=== PATIENT | female | born 1990 | race Caucasian/White ===

== ENCOUNTER 2016-07-10 00:20 | Observation (INO) | payer OTHER ==
[~2016-07-10] VITALS: Ht 180.3 cm; Wt 72.6 kg
--- NOTE | 2016-07-10 00:22 | ED.REPORT ---
HPI-General Illness Date of Service Jul 10, 2016 ED Provider: Dr. Matt Fallon M.D. A 26 year old female with a history of IDDM, accidental insulin overdose, and DKA presents to the ED via EMS with hyperglycemia onset just prior to arrival. The patient admits to fighting with her boyfriend, drinking too much, and forgetting to eat or take her insulin. The patient reports associated symptoms of nausea, hyperventilation, and anxiety, which have resolved in the ED. She denies other symptoms. EMS found the patient hyperglycemic with a BP of 131/90, a pulse of 120, and a pulse ox of 99% on room air. The patient normally takes Humalog and Lantus to control her blood glucose levels. Nursing Notes Stated Complaint: ETOH/ELEVATED BLOOD SUGAR Nursing Notes Reviewed: Yes Allergies: Coded Allergies: amoxicillin (Verified Allergy, Unknown, 07/10/16) Scheduled Insulin Glargine (Lantus U100 Insulin Vial) 100 Unit/Ml Vial 40 UNIT SUBQ QAM Scheduled PRN Insulin Human Lispro (HumaLOG U100 Insulin Vial) 100 Unit/Ml Unit UNIT SUBQ per sliding scale PRN PRN high blood sugar General Time Seen by MD: 00:22 Chief Complaint Other (Hyperglycemia) Hx Obtained From: Patient Arrived By: Ambulance Sudden in Onset?: No Onset Occurred: Just prior to arrival Context of Onset: EtOH use Symptom Duration: Since onset Severity: Current: No pain currently Severity: Maximum: No pain Associated with: Reports: Nausea, Denies: Fever Pertinent Negative: Relieved by nothing Context Related History: Reports Diabetes mellitus Recent Healthcare: No recent doctor visit Past Medical History Past Medical History IDDM DKA Accidental insulin overdose Past Surgical History None reported Smoking History Unknown if Ever Smoker Social History Other Social History: Good social support Ambulatory Status Independent Review of Systems + Hyperglycemia, hyperventilation Full Review of Systems Constitutional: Denies: Fever Respiratory: Denies: Non-productive cough GI: Reports: Nausea, Denies: Abdominal pain, Vomiting Psychiatric: Reports: Anxiety Complete sys rev & neg: except as marked. Physical Exam Vital Signs Vital Signs Date Time Temp Pulse Resp B/P Pulse Ox O2 Delivery O2 Flow Rate FiO2 07/10/16 03:39 103 16 114/55 100 Room Air 07/10/16 00:25 36.5 105 18 137/80 100 Room Air Initial VS: Reviewed Head / Eyes: Atraumatic, Normocephalic ENT: Conjunctiva normal, No scleral icterus Neck: Supple, Full range of motion Respiratory: Breath sounds normal, Clear to auscultation, No respiratory distress Cardiovascular: Regular rate & rhythm, Heart sounds normal Skin: Warm, Dry, No cyanosis Neurologic: Alert, Oriented, Nonfocal Psychiatric: Mood/affect normal, Behavior normal, Normal thought content General/Constitutional: Awake, Alert, No acute distress Behavior: Positive: Tearful Interpretation & Diagnostics URINE : Negative URINE DIPSTICK: 1.005 sp gravity 5 pH 1000mg/dl Glucose + Small Ketones Normal Urobilinogen Trace Blood Otherwise Negative URINE DRUG SCREEN: + Cocaine Otherwise Negative Lab Results Interpretation Result Diagram: 07/10/16 0102 07/10/16 0330 Test 07/10/16 01:02 07/10/16 02:00 07/10/16 03:30 White Blood Count 5.4th/mm3 (3.8-10.1) Red Blood Count 4.73mil/mm3 (3.90-5.20) Hemoglobin 14.1g/dL (12.0-15.6) Hematocrit 40.9% (35.0-46.0) Mean Corpuscular Volume 86.5fL (81-100) Mean Corpuscular Hemoglobin 29.8pg (27.0-35.0) Mean Corpuscular Hemoglobin Concent 34.5% (32.0-37.0) Red Cell Distribution Width 11.4% (12.3-15.4) Platelet Count 223bil/L (150-400) Neutrophils (%) (Auto) 52.1% (40-74) Lymphocytes (%) (Auto) 37.2% (14-46) Monocytes (%) (Auto) 4.1% (4-12) Eosinophils (%) (Auto) 4.4% (0-5) Basophils (%) (Auto) 2.0% (0-3) Lactic Acid Level 6.3mmol/L (0.4-2.0) Magnesium Level 2.1mg/dL (1.6-2.6) Total Bilirubin 1.1mg/dL (0.0-1.2) Aspartate Amino Transf (AST/SGOT) 24U/L (0-50) Alanine Aminotransferase (ALT/SGPT) 17U/L (0-32) Alkaline Phosphatase 95U/L (25-150) Total Protein 6.7g/dL (6.4-8.4) Albumin 4.1g/dL (3.4-5.0) Lipase 19U/L (13-60) Urine Color Straw (YELLOW) Urine Appearance Clear (CLEAR,HAZY) Urine pH 6.0 (5.0-8.0) Urine Specific [place] 1.005 (1.003-1.035) Urine Protein Negativemg/dL (NEG,TRACE) Urine Glucose (UA) >1000mg/dL (NEGATIVE) Urine Ketones Tracemg/dL (NEGATIVE) Urine Occult Blood Trace (NEGATIVE) Urine Nitrite Negative (NEGATIVE) Urine Bilirubin Negative (NEGATIVE) Urine Urobilinogen Normalmg/dL (NORMAL) Urine Leukocyte Esterase Negative (NEGATIVE) Urine RBC 0-2/hpf (0-2) Urine WBC 0-5/hpf (0-5) Urine Epithelial Cells Occasional/hpf (NONE-MOD) Urine Crystals None seen (NONE SEEN) Urine Bacteria None/hpf (NONE-FEW) Urine Hyaline Casts None/lpf (NONE) Urine Granular Casts None seen (NONE SEEN) Urine Waxy Casts None seen (NONE SEEN) Urine Red Blood Cell Casts None seen (NONE SEEN) Urine White Blood Cell Casts None seen (NONE SEEN) Urine Mucus None seen (None Seen) Urine Trichomonas None seen (NONE SEEN) Urine Yeast None (NONE SEEN) Urine Culture Reflexed Not indicated Sodium Level 137mEq/L (134-144) Potassium Level 3.3mEq/L (3.5-5.2) Chloride Level 99mEq/L (97-108) Carbon Dioxide Level 17mmol/L (18-29) Blood Urea Nitrogen 8mg/dL (6-20) Creatinine 0.37mg/dL (0.57-1.00) Estimat Glomerular Filtration Rate 302mL/min (>59) Glucose Level 303mg/dL (60-99) Calcium Level 8.3mg/dL (8.5-10.1) Alcohol, Quantitative 87mg/dL (0-10) Ketones Negative (Negative) Re-Eval/Medical Decision Med Decision/Clinical Course 26-year-old presents with high glucose, mild acidosis, and vomiting, after alcohol and cocaine ingestion, and an emotional argument with a boyfriend. She has improved with IV insulin, but remains moderately acidotic with a bicarbonate of seventeen. She is admitted now for further IV fluids, ongoing monitoring of her glucose and ongoing intermittent insulin dosing. Transported in improved and stable condition. Time of Eval: 02:58 Patient Status: Condition improved Re-Evaluation/Progress Note: Discussed with patient and her mother lab results, diagnosis, and plan for admit. Patient agrees with plan for care and all questions were addressed. Consultation #1: Referral / Consult Name: Alis Connelly DO Consulted With: Hospitalist Call Returned at: 03:15 Fur Nailer: Agrees with eval, Agrees with plan Note: Requests repeat labs Consultation #2: Referral / Consult Name: Alis Connelly DO Consulted With: Hospitalist Call Returned at: 04:11 Fur Nailer: Agrees with eval, Agrees with plan, Accepts admit Counseled Regarding: Diagnosis, Lab results, Need for admission Discharge & Departure Shift Change Sign-Out Response to Therapy: Improved Primary Impression: DKA (diabetic ketoacidoses) Diabetes mellitus type: type 1 Diabetes mellitus complication detail: without coma Qualified Code: E10.10 - Type 1 diabetes mellitus with ketoacidosis without coma Disposition: ADMITTED TO HOSPITAL Discharge Condition All VS Reviewed: Yes Condition: Stable Referrals: NOPCP (PCP) [facility] [employer] Attestation Portions of this note were transcribed by Alicia Carlisle. I, Dr. Fallon, personally performed the history, physical exam, and medical decision-making; I reviewed and confirmed the accuracy of the information in the transcribed note. Signed by: Saul Moreno, 07/10/2016, 05:10 copies to: [facility] Matt Fallon MD Jul 10, 2016 00:22 ALICIA CARLISLE Jul 10, 2016 00:29
[2016-07-10 00:25] VITALS: BP 137/80; PULSE 105; RESP 18; O2SAT 100
[2016-07-10] MEDS: 0.9% Sodium Chloride 1,000 ML IV SCH ×2 (01:20→05:55)
[2016-07-10 01:22] LABS: EOSINOPHILS % (AUTO) 4.4 % (0-5); MONOCYTES % (AUTO) 4.1 % (4-12); Mean Corpuscular Hemoglobin 29.8 pg (27.0-35.0); Mean Corpuscular Volume 86.5 fL (81-100); NEUTROPHILS % (AUTO) 52.1 % (40-74); Platelet Count 223 bil/L (150-400)
[2016-07-10 01:54] LABS: Magnesium 2.1 mg/dL (1.6-2.6)
[2016-07-10] MEDS ORDERED: Insulin Human REGular-Omnicell 100 Unit/mL IV ONE (01:55)
[2016-07-10 02:22] LABS: APPEARANCE,URINE CLEAR (CLEAR,HAZY); COLOR,URINE STRAW (YELLOW); OCCULT BLOOD,URINE TRACE (NEGATIVE); UROBILINOGEN,URINE NORMAL (NORMAL)
[2016-07-10] MEDS ORDERED: 0.9% Sodium Chloride 1,000 ML IV ONE (03:00)
[2016-07-10] MEDS ORDERED: Insulin Human REGular 300 Unit/3 mL Inj IV SCH (03:00)
[2016-07-10 03:39] VITALS: BP 114/55; PULSE 103; RESP 16; O2SAT 100
[2016-07-10] MEDS ORDERED: Senna-Docusate 8.6-50 mg Tablet PO PRN (04:10)
[2016-07-10] MEDS ORDERED: Polyethylene Glycol (PEG) 17 Gm Powder PO PRN (04:10)
[2016-07-10] MEDS ORDERED: Ondansetron 2 mg/mL 2 mL Inj IVPUSH PRN (04:10)
[2016-07-10] MEDS ORDERED: Alum-Mag Hydrox-Simeth 30 mL Suspension PO PRN (04:10)
--- NOTE | 2016-07-10 04:24 | PCM.HPMED ---
Subjective Date of Service Jul 10, 2016 Primary Provider: Admitting Physician: Alis Connelly DO Primary Care Physician: Antoinette Attending Physician: Alis Connelly DO Admit Status: From the Emergency Department Chief Complaint: elevated blood glucose History of Present Illness: 26yoF with history of type 1 diabetes with history of DKA admitted with hyperglycemia and DKA. Patient states she was arguing with boyfriend this evening then went out drinking however did not take her insulin. She endorses nausea and anxiety on presentation but at this time are resolved with no complaints aside from feeling fatigued and wishing to sleep. Vitals T 36.5, HR 105, RR 18, BP 137/80, 100% on RA Blood work with sodium 131, CO2 17,Cl 91, glucose 641, lactic acid of 6.3. gap 23 u-preg negative, urine + small ketone, tox + cocaine Review of Systems: complete review of systems obtained. Positive as per HPI otherwise negative. Allergies Coded Allergies: amoxicillin (Verified Allergy, Unknown, 07/10/16) Home Medications As per patient: Lantus 40units daily (taken at 1100) Lispro SSI PMH IDDM DKA Accidental insulin overdose Surgical History none Family History no history of diabetes Social History Hx Tobacco Use: Yes (4-5 cigarettes per day) Smoking Status: Unknown if Ever Smoker Living Arrangement: with Family Exam Vital Signs Vital Sign - Last Date Time Temp Pulse Resp B/P Pulse Ox O2 Delivery O2 Flow Rate FiO2 07/10/16 03:39 103 16 114/55 100 Room Air 07/10/16 00:25 36.5 Intake and Output 07/09/16 07/09/16 07/10/16 Cumulative From/Thru 15:00 23:00 07:00 07/10/16 00:25 - 07/10/16 01:20 Intake Total 2000 ml 2000 ml Balance 2000 ml 2000 ml Intake IV Total 2000 ml 2000 ml Exam General: Alert, Oriented X3, Cooperative, Moderate respiratory distress on BIPAP Eyes: PERRLA, Scleral Anicteric Mouth: Mouth Normal, Mucous Membranes Moist/[place] Neck: Supple, no Thyromegaly, trachea central. Chest & Lungs: CTA bilateral, no rhonchi, wheezes or rales, good inspiratory effort Cardiovascular: Normal S1, Normal S2, No Murmurs/Rubs/Gallops, Regular Rate/ Rhythm, (No JVD, no peripheral edema) Pulses: Radial (present and equal), Dorsalis Pedi (present and equal) Abdomen: Soft, Non-tender, Non-distended, Normoactive bowel tones. Musculoskeletal: Unremarkable. Normal range of motion, no swollen or erythematous joints Extremities: 3 + pitting leg edema, no cyanosis, no clubbing. Skin: No rashes. Warm and dry, no erythematous areas Neurological: Grossly neurologically intact, has generalized weakness, Normal Speech, Sensation Intact Lymphatic: Lymph nodes Cervical and Axillary not palpable. Lab and Diagnostics Result Diagram: 07/10/16 0102 07/10/16 0330 Assessment & Plan 26yoF with history of type 1 diabetes with history of DKA admitted with hyperglycemia and DKA. DKA, acute, POA -patient with history of good medical compliance. no history of DKA however reported hgA1c 9 -no s/s infection, patient states didn't take insulin and drank (not frequent ETOH consumer) -10units IV insulin then 4 units IV insulin given in ED -gap 21 on admission to CCU -DKA protocol -q4BMP -hgbA1c pending Hyponatremia, acute, POA -pseudohyponatremia given elevation of glucose -continue to monitor History of medication non-compliance - consult -diabetes education if deemed appropriate Substance abuse, acute, POA -utox pos for cocaine -SW consult Tobacco dependence, chronic, POA -nicotine patch available upon request -discussed cessation with patient. She is ready to quit and has tried a couple times Pain Evaluation: Adequate Pain Control GI Prophylaxis: Not indicated VTE Prophylaxis Indicated: VTE on Admission VTE Prophylaxis: Sub-Q Heparin (Unfractionated) Resuscitation Status: CPR: Attempt Resuscitation Alis Connelly DO Jul 10, 2016 04:24
[2016-07-10] MEDS ORDERED: INSU100V7 SUBQ (05:24)
[2016-07-10] MEDS ORDERED: INSLIS SUBQ (05:24)
[2016-07-10] MEDS ORDERED: Insulin Human REGular 300 Unit/3 mL Inj SUBQ PRN (05:35)
[2016-07-10] MEDS ORDERED: Insulin Human REGular Inj 100 UNIT in 0.9% Sodium Chloride 100 ML SUBQ PRN (05:35)
[2016-07-10] MEDS ORDERED: D5W1/2NS 1,000 mL IV PRN (05:35)
--- NOTE | 2016-07-10 06:09 | NUR ---
CCU admit Admitted patient from ED @ 0430 for DKA, recent anion gap 21, pt alert and oriented x3 denies any pain/discomfort, no nausea/vomiting, c/o mild generalized body weakness, started insulin gtt per dka protocol with D5 1/2 NS IVF and NS @ 150cc/hr hydrating fluid, Pt has not voided, denies urge to void yet. MRSA nasal screen sent, NSR 90's, no ectopy.
[2016-07-10] MEDS ORDERED: Potassium Chloride 20 mEq SR Tablet PO ONE (07:30)
[2016-07-10] MEDS ORDERED: D5 0.45% NaCl + KCl 20 mEq/L 1,000 ML IV SCH (08:15)
[2016-07-10 08:34] VITALS: BP 95/50; PULSE 97; RESP 16; O2SAT 95
[2016-07-10] MEDS: Heparin 5,000 Unit/mL Inj SUBQ SCH ×2 (08:59→16:09)
[2016-07-10 11:28] VITALS: BP 98/53; PULSE 89; RESP 18; O2SAT 99
--- NOTE | 2016-07-10 11:49 | PCM.PNMED ---
Subjective Date of Service Jul 10, 2016 Subjective 26yoF with history of type 1 diabetes with history of DKA admitted with hyperglycemia and DKA. This morning, she denies nausea, vomiting, and abdominal pain. She is resting comfortably in bed. Exam Vital Signs Vital Sign - Last Date Time Temp Pulse Resp B/P Pulse Ox O2 Delivery O2 Flow Rate FiO2 07/10/16 11:28 36.9 89 18 98/53 99 Room Air Intake and Output 07/09/16 07/09/16 07/10/16 Cumulative From/Thru 14:59 22:59 06:59 07/10/16 00:25 - 07/10/16 06:48 Intake Total 2186 ml 2186 ml Balance 2186 ml 2186 ml Intake Oral 0 ml 0 ml IV Total 2186 ml 2186 ml # Voids 0 0 # Bowel Movements 0 0 Exam General: Alert, Oriented X3, Cooperative, resting comfortably Eyes: PERRLA, Scleral Anicteric Mouth: Mouth Normal, Mucous Membranes Moist/[place] Neck: Supple, no Thyromegaly, trachea central. Chest & Lungs: CTA bilateral, no rhonchi, wheezes or rales, good inspiratory effort Cardiovascular: Normal S1, Normal S2, No Murmurs/Rubs/Gallops, Regular Rate/ Rhythm, (No JVD, no peripheral edema) Pulses: Radial (present and equal), Dorsalis Pedi (present and equal) Abdomen: Soft, Non-tender, Non-distended, Normoactive bowel tones. Musculoskeletal: Unremarkable. Normal range of motion, no swollen or erythematous joints Extremities: No leg edema, no cyanosis, no clubbing. Skin: No rashes. Warm and dry, no erythematous areas Neurological: Grossly neurologically intact, has generalized weakness, Normal Speech, Sensation Intact Lymphatic: Lymph nodes Cervical and Axillary not palpable. IVs and Medications Medications Reviewed: Medications were reviewed in detail Lab and Diagnostics Result Diagram: 07/10/16 0102 07/10/16 0500 Assessment & Plan 26yoF with history of type 1 diabetes with history of DKA admitted with hyperglycemia and DKA. DKA, acute, POA -patient with history of good medical compliance. no history of DKA however reported hgA1c 9 -no s/s infection, patient states didn't take insulin and drank (not frequent ETOH consumer) -10units IV insulin then 4 units IV insulin given in ED -gap 21 on admission to CCU, 24 upon recheck -DKA insulin protocol -D5 1/2 NS with KCL replacement preparation -q4BMP -hgbA1c pending Hyponatremia, acute, POA, improved -pseudohyponatremia given elevation of glucose -continue to monitor Hypokalemia, acute, improved. -40 meq potassium chloride given -continue to monitor History of medication non-compliance -SW consult -diabetes education if deemed appropriate Substance abuse, acute, POA -utox pos for cocaine -SW consult Tobacco dependence, chronic, POA -nicotine patch available upon request -discussed cessation with patient. She is ready to quit and has tried a couple times GI Prophylaxis: Not indicated VTE Prophylaxis: Sub-Q Heparin (Unfractionated) Resuscitation Status: CPR: Attempt Resuscitation Claudette Manley DO Jul 10, 2016 11:49
[2016-07-10] MEDS ORDERED: Insulin GLARgine 100 Unit/mL Syringe SUBQ ONE (12:40)
[2016-07-10] MEDS ORDERED: Glucose 40% Oral Gel 15 Gm Tube PO PRN (12:40)
[2016-07-10 16:14] VITALS: BP 108/55; PULSE 94; O2SAT 96
[2016-07-10 17:15] VITALS: BP 114/76; PULSE 88; RESP 18; O2SAT 99
[2016-07-10] MEDS ORDERED: Insulin LISPRO 300 Unit/3 mL Inj SUBQ SCH (17:30)
--- NOTE | 2016-07-10 20:00 | PCM.DIMED ---
Claudette Manley DO 07/10/16 2000: Discharge Instructions Date of Service Jul 10, 2016 Dates of Hospitalization Jul 10, 2016 at 04:15 Discharge Diagnosis Discharge Diagnosis 1. Left against medical advice 2. DKA 3. Hyponatremia 4. Hypokalemia 5. History of medication non-compliance 6. Substance abuse 7. Tobacco dependence Patient Instructions Patient left against medical advice even after discussing risks of leaving before medically stable including coma and . Ayaz Bowles MD 07/11/16 0656: Discharge Instructions Attending's Statement The patient was seen and examined together with Dr. Manley on 07/10/2016 .patient left DIYA Claudette Manley DO Jul 10, 2016 20:00 Ayaz Bowles MD Jul 11, 2016 06:56
--- NOTE | 2016-07-10 20:09 | PCM.DC.MED ---
Discharge Summary Date of Service Jul 10, 2016 Dates of Hospitalization Date of Hospital Admission Jul 10, 2016 at 04:15 Date of Discharge: Jul 10, 2016 Providers: Admitting Physician: Alis Connelly DO Primary Care Physician: Nopcp Attending Physician: Alis Connelly DO Diagnosis at Time of Discharge Diagnosis at Time of Discharge 1. Left against medical advice 2. DKA 3. Hyponatremia 4. Hypokalemia 5. History of medication non-compliance 6. Substance abuse 7. Tobacco dependence Brief History From the history and physical performed by Dr. Alis Connelly on 07/10/2016 : 26yoF with history of type 1 diabetes with history of DKA admitted with hyperglycemia and DKA. Patient states she was arguing with boyfriend this evening then went out drinking however did not take her insulin. She endorses nausea and anxiety on presentation but at this time are resolved with no complaints aside from feeling fatigued and wishing to sleep. Vitals T 36.5, HR 105, RR 18, BP 137/80, 100% on RA Blood work with sodium 131, CO2 17,Cl 91, glucose 641, lactic acid of 6.3. gap 23 u-preg negative, urine + small ketone, tox + cocaine Hospital Course 26yoF with history of type 1 diabetes with history of DKA admitted with hyperglycemia and DKA. Left against medical advice -Patient left against medical advice even after discussing risks of leaving before medically stable including coma and . -Advised patient that she should be monitored at least overnight due to potential complications of untreated diabetic ketoacidosis Diabetic ketoacidosis acute, present on admission. -patient with history of good medical compliance. no history of DKA however reported hgA1c 9 -no s/s infection, patient states didn't take insulin and drank (not frequent ETOH consumer) -10units IV insulin then 4 units IV insulin given in ED -gap 21 on admission to CCU and improved to 18 -DKA insulin protocol -D5 1/2 NS with KCL replacement preparation -q4BMP -hgbA1c pending Hyponatremia, acute, present on admission, improved -pseudohyponatremia given elevation of glucose Hypokalemia, acute, improved. -40 meq potassium chloride PO and then replenished with IV as above Substance abuse, acute, present on admission -Urine drug screen positive for cocaine -computer networker consulted Tobacco dependence, chronic, present on admission -nicotine patch was available upon request -discussed cessation with patient. She was ready to quit and has tried a couple times Exam Vital Signs (Last) Date Time Temp Pulse Resp B/P Pulse Ox O2 Delivery O2 Flow Rate FiO2 07/10/16 17:15 36.9 88 18 114/76 99 Room Air Test 07/10/16 01:02 07/10/16 02:00 07/10/16 03:30 07/10/16 15:10 White Blood Count 5.4th/mm3 (3.8-10.1) Red Blood Count 4.73mil/mm3 (3.90-5.20) Hemoglobin 14.1g/dL (12.0-15.6) Hematocrit 40.9% (35.0-46.0) Mean Corpuscular Volume 86.5fL (81-100) Mean Corpuscular Hemoglobin 29.8pg (27.0-35.0) Mean Corpuscular Hemoglobin Concent 34.5% (32.0-37.0) Red Cell Distribution Width 11.4% (12.3-15.4) Platelet Count 223bil/L (150-400) Neutrophils (%) (Auto) 52.1% (40-74) Lymphocytes (%) (Auto) 37.2% (14-46) Monocytes (%) (Auto) 4.1% (4-12) Eosinophils (%) (Auto) 4.4% (0-5) Basophils (%) (Auto) 2.0% (0-3) Lactic Acid Level 6.3mmol/L (0.4-2.0) Magnesium Level 2.1mg/dL (1.6-2.6) Total Bilirubin 1.1mg/dL (0.0-1.2) Aspartate Amino Transf (AST/SGOT) 24U/L (0-50) Alanine Aminotransferase (ALT/SGPT) 17U/L (0-32) Alkaline Phosphatase 95U/L (25-150) Total Protein 6.7g/dL (6.4-8.4) Albumin 4.1g/dL (3.4-5.0) Lipase 19U/L (13-60) Urine Color Straw (YELLOW) Urine Appearance Clear (CLEAR,HAZY) Urine pH 6.0 (5.0-8.0) Urine Specific [place] 1.005 (1.003-1.035) Urine Protein Negativemg/dL (NEG,TRACE) Urine Glucose (UA) >1000mg/dL (NEGATIVE) Urine Ketones Tracemg/dL (NEGATIVE) Urine Occult Blood Trace (NEGATIVE) Urine Nitrite Negative (NEGATIVE) Urine Bilirubin Negative (NEGATIVE) Urine Urobilinogen Normalmg/dL (NORMAL) Urine Leukocyte Esterase Negative (NEGATIVE) Urine RBC 0-2/hpf (0-2) Urine WBC 0-5/hpf (0-5) Urine Epithelial Cells Occasional/hpf (NONE-MOD) Urine Crystals None seen (NONE SEEN) Urine Bacteria None/hpf (NONE-FEW) Urine Hyaline Casts None/lpf (NONE) Urine Granular Casts None seen (NONE SEEN) Urine Waxy Casts None seen (NONE SEEN) Urine Red Blood Cell Casts None seen (NONE SEEN) Urine White Blood Cell Casts None seen (NONE SEEN) Urine Mucus None seen (None Seen) Urine Trichomonas None seen (NONE SEEN) Urine Yeast None (NONE SEEN) Urine Culture Reflexed Not indicated Alcohol, Quantitative 87mg/dL (0-10) Ketones Negative (Negative) Sodium Level 135mEq/L (134-144) Potassium Level 4.3mEq/L (3.5-5.2) Chloride Level 100mEq/L (97-108) Carbon Dioxide Level 21mmol/L (18-29) Blood Urea Nitrogen 6mg/dL (6-20) Creatinine 0.48mg/dL (0.57-1.00) Estimat Glomerular Filtration Rate 224mL/min (>59) Glucose Level 216mg/dL (60-99) Calcium Level 7.8mg/dL (8.5-10.1) Discharge Medications Discharge Medications Insulin Glargine (Lantus U100 Insulin Vial) 100 Unit/Ml Vial 40 UNIT SUBQ QAM ( Reported) As needed Insulin Human Lispro (HumaLOG U100 Insulin Vial) 100 Unit/Ml Unit UNIT SUBQ per sliding scale PRN PRN high blood sugar (Reported) Followup Plan Disposition: home Patient Instructions Patient left against medical advice even after discussing risks of leaving before medically stable including coma and . Attending Statement The patient was seen and examined together with Dr. Manley on 07/10/2016 .patient left Claudette Banerjee DO Jul 10, 2016 20:02 Ayaz Bowles MD Jul 11, 2016 06:57
[2016-07-11] MEDS ORDERED: Insulin GLARgine 100 Unit/mL Syringe SUBQ SCH (08:30)
== END 2016-07-10 17:30 | disposition left against medical advice (07) ==
LOC: SED 00:20 → PCC 04:15 → CCU 04:30
PROVIDERS: ADMIT Internal Medicine; ATTEND Internal Medicine
DX: E10.10 Type 1 diabetes mellitus with ketoacidosis without coma (principal); E87.1 Hypo-osmolality and hyponatremia; E87.6 Hypokalemia; F14.10 Cocaine abuse, uncomplicated; F41.9 Anxiety disorder, unspecified; F17.210 Nicotine dependence, cigarettes, uncomplicated; Z91.14 Patient's other noncompliance with medication regimen; Z79.4 Long term (current) use of insulin
CPT/HCPCS: 36415; 80048; 80053; 81000; 81025; 82009; 82948; 83036; 83605; 83690; 83735; 84132; 85025; 87081; 96361; 96374; 96375; 96376; 99285; G0378; G0480; J1644; J1815; J7030; J7042